=== PATIENT | male | born 1955 | race Caucasian/White ===

== ENCOUNTER → 2020-06-30 | Outpatient (CLI) | payer MEDICARE, BC ==
[~2020-06-30] MED LIST: ISOVUE-370 76% 100ML VIAL As Ordered ONE
--- NOTE | 2020-07-01 09:25 | REP ---
INDICATION: WHEEZING, ABN FINDING OF LUNG. COMPARISON: Comparison study November 25, 2014.. TECHNIQUE: Helical scanning is acquired following the intravenous injection of 75 mL of Isovue 370. 3 mm axial images re-formatted. Coronal and sagittal MPR and coronal MIP images are provided. 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 On axial images, there is mild linear pleuroparenchymal fibrosis at the right apex and there is by lateral lower lobe chronic platelike atelectasis along the diaphragm surfaces unchanged and bilaterally. No new infiltrate is seen. No lung mass or significant pulmonary nodule is appreciated. No pleural effusion is seen. There is moderate to marked diffuse fatty infiltration of the liver. Normal adrenal glands are seen. There is intrarenal nephrolithiasis bilaterally without hydronephrosis visible. Visualized upper abdominal structures are otherwise unremarkable. No hilar or mediastinal mass or adenopathy is observed. There is good opacification of the pulmonary arterial tree and no filling defect is seen to suggest pulmonary embolus. Mild vascular calcifications seen in the aorta. No aneurysm or dissection seen. No extra thoracic mass or adenopathy is observed. Bone window settings show no bony destructive lesion. There are degenerative spondylosis changes in the thoracic spine. IMPRESSION: Bibasilar fibro atelectatic changes. Chronically elevated right hemidiaphragm. Moderate to marked diffuse fatty infiltration of the liver. Bilateral intrarenal nephrolithiasis without visible hydronephrosis. <Electronically signed by Pranav Wynne > 07/01/20 0922
== END ==
LOC: M RAD 15:46
PROVIDERS: ATTEND Internal Medicine Pulmonary Disease
DX: J98.11 Atelectasis (principal); J84.10 Pulmonary fibrosis, unspecified; K76.0 Fatty (change of) liver, not elsewhere classified; N20.0 Calculus of kidney
CPT/HCPCS: 71260; Q9967

== ENCOUNTER → 2024-10-21 | Outpatient (CLI) | payer MEDICARE, BC | LOC: M PLAIMG 09:59 | PROVIDERS: ATTEND Internal Medicine Pulmonary Disease | DX: R06.00 Dyspnea, unspecified (principal); R91.8 Other nonspecific abnormal finding of lung field; I25.10 Atherosclerotic heart disease of native coronary artery without angina pectoris; I70.0 Atherosclerosis of aorta; N20.0 Calculus of kidney; J98.11 Atelectasis ==